=== PATIENT | female | born 1980 | race Caucasian/White ===

== ENCOUNTER 2021-07-15 11:57 | Emergency (ER) | payer OTHER ==
[~2021-07-15] VITALS: Ht 160 cm; Wt 81.8 kg
[2021-07-15] MEDS: ACETAMINOPHEN 500 MG TABLET PO ONE (13:42)
[2021-07-15 15:27] VITALS: BP 116/71
== END 2021-07-15 15:53 | disposition home or self-care (01) ==
LOC: EMS 11:57
DX: S09.8XXA Other specified injuries of head, initial encounter (principal); W22.8XXA Striking against or struck by other objects, initial encounter; Y93.89 Activity, other specified; Y92.89 Other specified places as the place of occurrence of the external cause; Y99.0 Civilian activity done for income or pay
CPT/HCPCS: 70450; 99284